=== PATIENT | male | born 1965 | race Caucasian/White ===

== ENCOUNTER 2023-09-20 05:11 | Observation (INO) ==
--- NOTE | 2023-08-15 11:08 | PAT Medication Instructions ---
Medication Instructions Date of Service August 15, 2023 Home Medications ascorbic acid (vitamin C) 500 mg tablet (Vitamin C) 1,000 mg PO DAILY atorvastatin 40 mg tablet 40 mg PO QAM carvedilol 3.125 mg tablet 3.125 mg PO BID celecoxib 200 mg capsule (Celebrex) 200 mg PO BID cholecalciferol (vitamin D3) 50 mcg (2,000 unit) capsule (Vitamin D3) 25 mcg PO DAILY clonazepam 0.5 mg tablet 0.5 mg PO BID docusate sodium 100 mg capsule (Stool Softener) 100 mg PO BID escitalopram oxalate 20 mg tablet 20 mg PO QAM furosemide 40 mg tablet 40 mg PO QAM magnesium oxide 400 mg PO BID potassium chloride 20 mEq oral packet 20 meq PO BID zinc acetate 50 mg (zinc) capsule 50 mg PO DAILY ASK your surgeon for instructions celecoxib 200 mg capsule (Celebrex) 200 mg PO BID DO NOT take the morning of surgery ascorbic acid (vitamin C) 500 mg tablet (Vitamin C) 1,000 mg PO DAILY cholecalciferol (vitamin D3) 50 mcg (2,000 unit) capsule (Vitamin D3) 25 mcg PO DAILY docusate sodium 100 mg capsule (Stool Softener) 100 mg PO BID furosemide 40 mg tablet 40 mg PO QAM magnesium oxide 400 mg PO BID potassium chloride 20 mEq oral packet 20 meq PO BID zinc acetate 50 mg (zinc) capsule 50 mg PO DAILY Take morning of surgery With a small sip of water, OTHERWISE NOTHING TO EAT OR DRINK AFTER MIDNIGHT: atorvastatin 40 mg tablet 40 mg PO QAM carvedilol 3.125 mg tablet 3.125 mg PO BID clonazepam 0.5 mg tablet 0.5 mg PO BID escitalopram oxalate 20 mg tablet 20 mg PO QAM Take evening before surgery carvedilol 3.125 mg tablet 3.125 mg PO BID clonazepam 0.5 mg tablet 0.5 mg PO BID docusate sodium 100 mg capsule (Stool Softener) 100 mg PO BID magnesium oxide 400 mg PO BID potassium chloride 20 mEq oral packet 20 meq PO BID Other Notes If you have any questions please call us at [phone] or [phone] or [phone] or [phone]
--- NOTE | 2023-08-21 09:26 | Anesthesiology Consultation ---
Date of Service August 21, 2023 Assessment & Plan (1) Encounter for pre-operative examination: - PAT testing to be faxed to PCP by patient request ([facility]). He reports upcoming PCP appointment 09/06/23. - Outpatient joint assessment: Patient is currently scheduled for inpatient pathway. If re-evaluated and patient/surgeon requests outpatient pathway, patient is not recommended candidate for outpatient joint program from anesthesia standpoint. Chart Review Chart Review: Pending: Refer to Additional Notes / Consult section and Patient seen in Pre Admission Testing Teaching & Discussion Pre-Anesthesia Teaching/Discussion Notes: Instructed NPO after midnight before surgery, except medications with 15 cc of water. Medication instructions provided according to the PAT guidelines. History Surgery Operation Date: 09/20/23 07:15 Proposed Procedures p Left Total Knee Arthroplasty - Abdirahman Shin DO Height/Weight Height: 5 ft 9 in Weight: 138.9 kg Allergies Allergy/AdvReac Type Severity Reaction Status Date / Time No Known Allergies Allergy Verified 08/03/23 14:24 Medications Home Medications Medication Instructions Recorded Confirmed Last Taken ascorbic acid (vitamin C) 500 mg 1,000 mg PO DAILY 08/03/23 08/03/23 Unknown tablet (Vitamin C) atorvastatin 40 mg tablet 40 mg PO QAM 08/03/23 08/03/23 Unknown carvedilol 3.125 mg tablet 3.125 mg PO BID 08/03/23 08/03/23 Unknown celecoxib 200 mg capsule (Celebrex) 200 mg PO BID 08/03/23 08/03/23 Unknown cholecalciferol (vitamin D3) 50 25 mcg PO DAILY 08/03/23 08/03/23 Unknown mcg (2,000 unit) capsule (Vitamin D3) clonazepam 0.5 mg tablet 0.5 mg PO BID 08/03/23 08/03/23 Unknown docusate sodium 100 mg capsule 100 mg PO BID 08/03/23 08/03/23 Unknown (Stool Softener) escitalopram oxalate 20 mg tablet 20 mg PO QAM 08/03/23 08/03/23 Unknown furosemide 40 mg tablet 40 mg PO QAM 08/03/23 08/03/23 Unknown magnesium oxide 400 mg PO BID 08/03/23 08/03/23 Unknown potassium chloride 20 mEq oral 20 meq PO BID 08/03/23 08/03/23 Unknown packet zinc acetate 50 mg (zinc) capsule 50 mg PO DAILY 08/03/23 08/03/23 Unknown Past Medical History Medical History Anemia Anxiety Colon cancer 2017 > surgery/chemo Edema Feet, occasional, chronic-notes gradual improvement Gallbladder problem unable to have surgery due to adhesions per pt report History of blood transfusion during colectomy Hyperlipidemia Hypertension controlled, stable per pt Neuropathy feet Rectal cancer 2017 > surgery/chemo Patient denies h/o stroke, seizures, heart attack, heart failure, DM, or blood clots/DVTs. Exercise / Class Metabolic Activity II 4-5 Yardwork/Stairs/Walk up hill (denies chest discomfort or shortness of breath with 1 FOS) Past Surgical History Surgical History History of anesthesia reaction "potassium and magnesium dropped" during colon surgery and had to stay overnight History of arthroscopy R/L knees History of cardiac cath Approximately 2013- no stents History of colonoscopy History of colostomy mesh inside stoma per pt History of esophagogastroduodenoscopy (EGD) Past Anesthesia History No Family Hx of Anesthesia Complications and Other (h/o hypokalemia and hypomagnesemia during colectomy) History of PONV No Hx of PONV and No Hx of Motion Sickness Social History Smoking Status: Never smoker Do You Dip or Chew Tobacco: Yes (advised npo) Hx Alcohol Use: No Hx Substance Use: No substance use type: other (medical marijuana-advised) Review of Systems Patient denies chest pain, shortness of breath, dyspnea on exertion, snoring, witnessed apneas, reflux, fever, chills, cough, wheezing, or palpitations. Physical Exam Vital Signs Vitals BP 118/79 P 75 TEMP 98.3 SP02 97% on RA RESP 18 Physical Patient resting comfortably in chair in no acute distress, alert and oriented, responding appropriately throughout visit Full cervical extension range of motion without pain TMD < 3 finger breadths Mallampati Score 3 Dentition: intact, denies chipped or loose teeth, caps/crowns, implants or bridges Lungs: normal respiratory effort. Good air movement, clear throughout to auscultation, no adventitious breath sounds Cardiac: regular rate and rhythm, no murmurs noted Carotid arteries: negative bruit bilat Lab Results Anesthesia Preop Results Results Anesthesia Widget: WBC 4.83 K/ul (4.8-10.8) 08/21/23 Hgb 12.0 g/dl (14.0-18.0) L 08/21/23 Hct 36.8 % (42.0-52.0) L 08/21/23 Plt 344 K/uL (130-400) 08/21/23 Na 138 mmol/L (136-145) 08/21/23 K 4.3 mmol/L (3.5-5.1) 08/21/23 Cl 105 mmol/L (98-107) 08/21/23 CO2 27 mmol/L (21-32) 08/21/23 BUN 19 mg/dl (6-23) 08/21/23 Creat 0.99 mg/dl (0.6-1.4) 08/21/23 Glucose Level 85 mg/dl (70-99(Fasting)) 08/21/23 PT 10.1 Seconds (9.0-12.0) 08/21/23 PTT 26 Seconds (21-31) 08/21/23 INR 0.9 (0.9-1.1) 08/21/23 HA1c 5.8 % (4.5-5.6) H 08/21/23 Urine Color Yellow 08/21/23 Urine Appearance Clear (Clear) 08/21/23 Urine pH 5.0 (4.5-7.5) 08/21/23 Urine Specific [place] 1.013 (1.000-1.030) 08/21/23 Urine Protein Negative (Negative) 08/21/23 Urine Glucose (UA) Negative (Negative) 08/21/23 Urine Ketones Negative (Negative) 08/21/23 Urine Blood Negative (Negative) 08/21/23 Urine Nitrite Negative (Negative) 08/21/23 Urine Bilirubin Negative (Negative) 08/21/23 Urine Urobilinogen Negative (Negative) 08/21/23 Urine Leukocyte Esterase Negative (Negative) 08/21/23 Blood Type O Positive 08/21/23 Antibody Screen NEGATIVE 08/21/23 Testing Electrocardiogram Date: 08/17/23 NSR, rate 68 bpm Incomplete RBBB Chest X-Ray Date: 08/21/23 No acute process.
--- NOTE | 2023-08-25 07:58 | History & Physical Report ---
Date of Service August 25, 2023 date of surgery: 09/20/23 Procedure: Left Total Knee Arthroplasty Surgeon: Abdirahman Shin, DO Assessment & Plan (1) Arthritis of knee, left: Plan: Further care discussed with patient and at this point in time has failed conservative measures and would like to proceed with a left total knee replacement. Plan on discharge will be home with home health physical therapy. DVT prophylaxiswith TEDs, SCDs and will also place on aspirin 81 mg p.o. b.i.d. for a month postop. Patient will have follow up appointment in our office two weeks post op for staple/suture removal and re-evaluation. Patient otherwise has no other questions or concerns. The risks and benefits have been discussed including, but not limited to, risk of infection, nerve injury, stiffness, loss of motion, failure to improve, etc. Reasonable outcomes and options of treatment were discussed. An explanation of appropriate alternatives to the procedure that may be advantageous were discussed and their risks and benefits, as well as the risks and benefits of not proceeding with treatment. I offered to answer any additional inquiries concerning the treatment involved. All the patient's questions were answered. The patient is agreeable, understanding of the treatment plan and alternatives, and wishes to proceed with the treatment plan. Please note the above document was generated using voice recognition software. It may contain grammatical, syntax or spelling errors. Any formal questions or concerns about the content, text or information contained within the body of this dictation should be directly addressed to the provider for clarification History of Present Illness Chief Complaint: left knee pain Primary Care Provider: NO PCP Smooth is a 58-year-old male who presented for preop evaluation prior to upcoming left total knee replacement. He has a longstanding history of left knee pain and has gradually worsened, rates his current pain as a 7 out of 10. He has had previous arthroscopy with partial meniscectomy and chondroplasty as well as undergone injections including corticosteroid with no improvement. He has tried and failed oral anti-inflammatories and Tylenol. At this point time is failed conservative measures and wished to proceed with a left total knee replacement Allergies Allergy/AdvReac Type Severity Reaction Status Date / Time No Known Allergies Allergy Verified 08/03/23 14:24 Home Medications Medication Instructions Recorded Confirmed Type ascorbic acid (vitamin C) 500 mg 1,000 mg PO DAILY 08/03/23 08/03/23 History tablet (Vitamin C) atorvastatin 40 mg tablet 40 mg PO QAM 08/03/23 08/03/23 History carvedilol 3.125 mg tablet 3.125 mg PO BID 08/03/23 08/03/23 History celecoxib 200 mg capsule (Celebrex) 200 mg PO BID 08/03/23 08/03/23 History cholecalciferol (vitamin D3) 50 25 mcg PO DAILY 08/03/23 08/03/23 History mcg (2,000 unit) capsule (Vitamin D3) clonazepam 0.5 mg tablet 0.5 mg PO BID 08/03/23 08/03/23 History docusate sodium 100 mg capsule 100 mg PO BID 08/03/23 08/03/23 History (Stool Softener) escitalopram oxalate 20 mg tablet 20 mg PO QAM 08/03/23 08/03/23 History furosemide 40 mg tablet 40 mg PO QAM 08/03/23 08/03/23 History magnesium oxide 400 mg PO BID 08/03/23 08/03/23 History potassium chloride 20 mEq oral 20 meq PO BID 08/03/23 08/03/23 History packet zinc acetate 50 mg (zinc) capsule 50 mg PO DAILY 08/03/23 08/03/23 History Past Med/Surg History Medical History History of blood transfusion during colectomy Gallbladder problem unable to have surgery due to adhesions per pt report Edema Feet, occasional, chronic-notes gradual improvement Anxiety Hyperlipidemia Hypertension controlled, stable per pt Anemia Colon cancer 2016 > surgery/chemo Rectal cancer 2017 > surgery/chemo Neuropathy feet Surgical History History of anesthesia reaction "potassium and magnesium dropped" during colon surgery and had to stay overnight History of arthroscopy R/L knees History of esophagogastroduodenoscopy (EGD) History of colonoscopy History of colostomy mesh inside stoma per pt History of cardiac cath Approximately 2013- no stents Social History Smoking Status: Never smoker Tobacco Type: Smokeless Tobacco (Dip or Chew) Second Hand Exposure: No; Do You Dip or Chew Tobacco: Yes (advised npo); Hx Alcohol Use: No Hx Substance Use: No Preferred Language: Tristanian Communication Ability: Effective Inspector Clip On Sunglasses Required: No Beliefs That Will Affect Care: None Current Living Situation: Spouse Feels Safe at Home: Yes Assistive Devices: None Review of Systems Review of Systems: All systems reviewed & are unremarkable except as noted in HPI & below Constitutional: no fever, no chills and no sweats Respiratory: no cough and no dyspnea Cardiovascular: no chest pain, no dyspnea and no orthopnea Gastrointestinal: no abdominal pain, no nausea and no vomiting Musculoskeletal: as per Subjective / HPI Physical Exam Physical Exam: HT: 5ft 9in WT: 138.9kg Constitutional: WD/WN, vitals as above no acute distress Respiratory: normal respiratory effort, lungs clear to auscultation no respiratory distress, no labored breathing and does not use accessory muscles Cardiovascular: RRR, no murmur, no edema Gastrointestinal (Abdomen): normal bowel sounds, soft, nontender, no hepatosplenomegaly Musculoskeletal: Knee: + knee abnormal to inspection (LEFT KNEE), + effusion (+1 effusion), + surgical incision (well healed portals), + limited ROM of knee (ROM 0/3/110), + knee ROM with crepitation, + joint line tenderness (medial joint line) and + Prosper's sign positive; no deformity, no skin erythema, no ecchymosis, no valgus laxity, no varus laxity, anterior drawer test negative, Petrona's sign negative and pivot shift test negative Results & Data Results & Data Diagnostic Findings Left Knee X-ray: left knee series confirm advanced degenerative changes to the left knee, greatest medial compartments and patellofemoral joint, showing joint space narrowing, osteophyte formation and subchondral sclerosis. no acute bony pathology noted.
[2023-09-20] MEDS ORDERED: ceFAZolin 2000MG 2,000 MG/15 ML SYR IV SCH (06:00)
[2023-09-20] MEDS: ACETAMINOPHEN 500 MG TAB PO SCH ×2 (06:12→14:36)
[2023-09-20] MEDS: CeleBREX 200 MG CAP PO SCH ×2 (06:13→11:53)
[2023-09-20] MEDS: FAMOTIDINE 20 MG TAB PO SCH (06:13)
[2023-09-20] MEDS: GABAPENTIN 300 MG CAP PO SCH (06:13)
[2023-09-20] MEDS: dexAMETHasone**PF** 10 MG/ML VIAL IV SCH (06:13)
[2023-09-20] MEDS: LR 500ML BOLUS, THEN 15ML/HR IV SCH (06:14)
[2023-09-20] MEDS: LR 60ML/HR IV SCH (06:14)
[2023-09-20] MEDS: METOCLOPRAMIDE HCL 10 MG TABLET PO SCH (06:14)
[2023-09-20] MEDS ORDERED: BUPIVACAINE 0.5 % 5 MG/1 ML PF 10ML VIAL ONE (06:16)
[2023-09-20] MEDS ORDERED: ROPIVACAINE 0.5% 5 MG/ML 30 ML VIAL ONE (06:16)
[2023-09-20] MEDS ORDERED: MIDAZOLAM HCL 1 MG/ML 2ML VIAL ONE ×2 (06:57)
[2023-09-20] MEDS ORDERED: PROPOFOL IV EMULSION 10 MG/ML 20 ML VIAL IV ONE ×3 (07:00→08:17)
[2023-09-20] MEDS ORDERED: LIDOCAINE 2% 2 ML VIAL/AMP(20MG/ML) INFIL ONE (07:00)
[2023-09-20] MEDS: TRANEXAMIC ACID 1,000 MG **IV Pre-op IV SCH (07:03)
--- NOTE | 2023-09-20 07:04 | History & Physical Bridge Note ---
Date of Service September 20, 2023 History & Physical Bridge Note I have examined the patient, reviewed the History & Physical and in the interval since the performance of the History & Physical I have noted the following changes of clinical significance: no changes noted
[2023-09-20] MEDS: ceFAZolin 3000MG 3,000 MG/72.5 ML BAG IV SCH (07:30)
[2023-09-20] MEDS: ROPIV 0.5% 246mg, Ketorolac 30mg, EPINEPHrine 0.5mg in NSS INFIL SCH (08:02)
--- NOTE | 2023-09-20 08:27 | Operative Report ---
Post Operative Report Pre & Post Diagnosis Operation Date: 09/20/23 07:15 Pre-Op Diagnosis: Left Knee Osteoarthritis Post-Op Diagnosis: Left Knee Osteoarthritis I identified the patient and participated in the time-out.: Yes Procedure Operation Date: 09/20/23 07:15 Actual Procedures p Left Total Knee Arthroplasty(Left) Utilizing [employer] journey 2 patient- matched total knee arthroplasty size femur 7 tibia 7 poly 9 patella 32 pamela- Abdirahman Shin DO Surgeon Abdirahman Shin DO [facility]ri Special Procedures Technologist Federico BADILLO Estimated Blood Loss 5 Findings Consistent with Post-Op Diagnosis Patient presents with severe end-stage tricompartmental degenerative joint disease left knee varus [id number] eburnated [id number] with marginal osteophytes subchondral sclerosis and large to moderate effusion Specimens Bone and cartilage Drains Medium bore Hemovac Anesthesia Type MAC Spinal Regional Complications none Disposition Accompanied Patient To Recovery: No Disposition: Recovery Room Indications Patient presents with severe end-stage DJD left knee nonresponse to conservative management above intraoperative findings known for type surgery with severe eburnated bone patient failed attempted corticosteroid injection viscosupplementation relative rest activity modification the above intraoperative findings were noted Description of Procedure After proper prepping and draping of the left lower extremity anterior midline incision was made over the region of the extensor extensor mechanism after meticulous hemostasis was obtained and maintained in subcutaneous tissues a medial parapatellar incision was made The patella was subluxed lateralward the medial lateral gutter were cleaned from any hypertrophic synovitis and scar tissue of the distal femoral block was placed and the distal femoral osteotomy cut was made subsequently the chamfers anterior and posterior osteotomy cuts were made utilizing the 4-in-1 block the tibia was subsequently subluxed anteriorward medial and ateral meniscal remnants were excised in their entirety remnants of the anterior and posterior cruciate ligaments were excised in their entirety excellent exposure of the proximal tibia was obtained the tibial osteotomy guide was placed on the proximal tibial osteotomy cut was made once again the knee was irrigated with copious amounts of sterile saline solution the patella was subsequently everted lateralward thickened scar tissue around the patella was removed the patella was subsequently cut utilizing a freehand technique and was drilled prepared for final preparation and placement of patella socially flexion-extension gaps were checked and the equal and symmetric trials were placed to the appropriate femoral and tibial trials with poly-spacer being placed for equal flexion and extension gaps and full range of motion including extension to 0 and flexion to 140 the trial components after having been taken to recovery range of motion was subsequently removed meticulous hemostasis was obtained and maintained subsequently a knee block injection of joint cocktail including ropivacaine 0.5% 150 mg. Bupivacaine 0.5% epinephrine 1-200,030 mL's toradol 30 mg dexamethasone 4 mg ketamine 10 mg clonidine 100 micrograms normal saline solution 30 mg was infiltrated into the soft tissues of the posterior knee medial lateral gutters and periosteal synovium special attention was paid to protect neurovascular structures at all times subsequently trial components having been removed the knee was irrigated with sterile saline solution. debris was removed the proximal tibia was subsequently prepared and was made ready for the placement of the tibial component tibial component was also cemented and tamped into position the femoral component was subsequently placed and cemented in the position the patellar component was subsequently cemented in position because hemostasis once again obtained and maintained wound having been thoroughly irrigated with debridement and debridement lavage was performed as well as a medial parapatellar incision closed with #1 Vicryl in interrupted fashion subcutaneous was closed with #2 Vicryl skin was closed with skin clips. PA-C was necessary for prepping and drapping as well as wound closure of deep fascia Sub cutaneous tissue and skin and was necessary for the case. A sterile compressive dressing was placed patient was taken to recovery in stable condition of report dictated by Kip I attest to the content of the Intraoperative Record and any orders documented therein. Any exceptions are noted below.Due to the complex nature of the procedure, the entire surgery was performed with the operational assistance ofABY Yan. The baking assistant, under direct supervision, was involved in the actual performance of all aspects of the surgical procedure including hemostasis, tissue retraction and incision, instrument management, patient positioning, and wound closure. I attest to the content of the Intraoperative Record and any orders documented therein. Any exceptions are noted below.
[2023-09-20] MEDS ORDERED: HYDROmorphone INJ 2 MG/ML SYR/VIAL IV PRN (09:12)
[2023-09-20] MEDS ORDERED: ATROPINE SULFATE 0.1 MG/ML 10ML SYR IV PRN (09:12)
[2023-09-20] MEDS ORDERED: ePHEDrine sulfate 50 MG/ML AMP IV PRN (09:12)
[2023-09-20] MEDS ORDERED: fentaNYL citrate PF 100 MCG/2 ML VIAL IV PRN (09:12)
--- NOTE | 2023-09-20 09:58 | XRay Report ---
XR knee LT 1 or 2V routine HISTORY: 58 years-old Male Surgical Post Op left knee arthroplasty COMPARISON: None TECHNIQUE: 2 views of the left knee FINDINGS: Total joint arthroplasty with patellar resurfacing. Expected postoperative soft tissue swelling, deep tissue air and small joint effusion. No acute fracture, dislocation or unexpected opaque foreign bod y. IMPRESSION: Total joint arthroplasty and patellar resurfacing with expected postoperative changes. ACT 112: Negative or not required by law. The above report was generated using voice recognition software. It may contain grammatical, syntax o r spelling errors. Electronically signed by: Kevon Humphrey M.D. 09/20/2023 9:57 AM
--- NOTE | 2023-09-20 10:31 | Anesthesiology Progress Note ---
Date of Service September 20, 2023 Anesthesia Post Procedure Vital Signs Vital Signs: Temp Pulse Resp BP Pulse Ox O2 Del Method O2 Flow Rate 09/20/23 09:55 61 14 128/96 98 Room Air 09/20/23 09:45 36.5 C 60 12 129/68 99 Room Air 09/20/23 09:35 62 18 125/80 99 Room Air 09/20/23 09:25 65 14 120/66 99 Room Air 09/20/23 09:15 61 16 120/76 99 Oxymask 4 09/20/23 09:05 63 14 123/85 100 Oxymask 4 09/20/23 08:57 36.2 C L 71 16 136/79 98 Oxymask 6 09/20/23 05:47 37.0 C 67 20 160/99 H 98 Room Air Transfer of Care Handoff Completed per policy Notes Mental Status: alert / awake / arousable and participated in evaluation Nausea / Vomiting: adequately controlled Pain: adequately controlled Airway Patency, RR, SpO2: stable & adequate BP & HR: stable & adequate Hydration State: stable & adequate Neuraxial Anesthesia: was administered and sensory block is resolving Anesthetic Complications: no major complications apparent and Pt Satisfied with anesthetic care
[2023-09-20] MEDS ORDERED: bisacodyL 10 MG SUPP PR PRN (10:45)
[2023-09-20] MEDS ORDERED: MAGNESIUM HYDROXIDE SUSP 30 ML UDC PO PRN (10:45)
[2023-09-20] MEDS ORDERED: DOCUSATE SODIUM 100 MG CAP PO SCH (10:45)
[2023-09-20] MEDS ORDERED: METOCLOPRAMIDE HCL INJ 5 MG/ML 2 ML VIAL IV PRN (10:45)
[2023-09-20] MEDS ORDERED: NALOXONE HCL 0.4 MG/1 ML VIAL/CARP IV PRN (10:45)
[2023-09-20] MEDS ORDERED: ONDANSETRON INJ 2 MG/ML 2 ML VIAL IV PRN (10:45)
[2023-09-20] MEDS ORDERED: diphenhydrAMINE Capsule 25 MG CAP PO PRN (10:45)
[2023-09-20] MEDS: TRANEXAMIC ACID 1,000 MG **IV Intra-op IV SCH (11:17)
[2023-09-20] MEDS: ORTHO JOINT ANESTHETIC ONE (11:20)
[2023-09-20] MEDS: ASPIRIN 81 MG ECTAB PO SCH (11:52)
[2023-09-20] MEDS: ASCORBIC ACID 500 MG TAB PO SCH (11:52)
[2023-09-20] MEDS: DOCUSATE SODIUM 100 MG CAP PO SCH (11:52)
[2023-09-20] MEDS: ESCITALOPRAM OXALATE 20 MG TAB PO SCH (11:54)
[2023-09-20] MEDS: clonazePAM 0.5 MG TAB PO SCH (11:54)
[2023-09-20] MEDS: carvediloL 3.125 MG TAB PO SCH (11:55)
[2023-09-20] MEDS: ATORVASTATIN 40 MG TAB PO SCH (11:55)
[2023-09-20] MEDS: POTASSIUM CHLORIDE PWD 20 MEQ PACK PO SCH (11:55)
[2023-09-20] MEDS: MULTIVITAMIN TAB PO SCH (11:56)
[2023-09-20] MEDS: MAGNESIUM OXIDE 400 MG TAB PO SCH (11:56)
[2023-09-20] MEDS: CHOLECALCIFEROL 25 MCG (1000 UNITS) TAB PO SCH (11:57)
[2023-09-20] MEDS: ZINC SULFATE 220 MG CAPSULE PO SCH (11:58)
[2023-09-20] MEDS: KETOROLAC TROMETHAMINE 15 MG/ML VIAL IV SCH (11:58)
[2023-09-20] MEDS: ceFAZolin 2000MG 2,000 MG/15 ML SYR IV SCH (15:06)
[2023-09-20] MEDS: SODIUM CHLORIDE 0.9% 1,000 ML IV SCH (15:06)
[2023-09-20] MEDS: SENNA 8.6 MG TAB PO SCH (20:52)
[2023-09-20] MEDS: oxyCODONE HCL IR 5 MG TAB (IMMEDIATE RELEASE) PO PRN (20:53)
[2023-09-21 06:19] LABS: Hematocrit (blood only) 30.7 % (42.0-52.0); Hemoglobin 10.3 g/dl (14.0-18.0); Mean Corpuscular Hemoglobin 30.8 pg (25.0-34.0); Mean Corpuscular Hgb Conc 33.6 g/dL (32.0-36.0); Mean Corpuscular Volume 91.9 fL (80.0-100.0); Mean Platelet Volume 9.7 fL (9.4-12.4); Platelet Count 311 K/uL (130-400); RDW Coefficient of Variation 13.2 % (11.5-14.5); RDW Standard Deviation 44.3 fL (36.4-46.3); Red Blood Count 3.34 M/uL (4.70-6.10); White Blood Count 11.75 K/ul (4.8-10.8)
[2023-09-21 06:34] LABS: BUN Creatinine Ratio 24.7 (10-20); Calcium 8.9 mg/dl (8.6-10.3); Creatinine Clr Calc Pharmacy 118.7 ml/min; Est GFR (African American) 103.1 ml/min; Est GFR (Non-African American) 88.9 ml/min; Potassium 4.3 mmol/L (3.5-5.1)
--- NOTE | 2023-09-21 06:53 | Orthopedic Progress Note ---
Date of Service September 21, 2023 Assessment & Plan (1) History of total left knee replacement: Plan: POD #1 s/p Left TKA pt/ot dvt proph with JOHN/SCD/ASA plan for d/c home with HHPT when stable Admission and Anticipated Discharge Date Admission Date: September 20, 2023 Subjective POD #1 s/p Left TKA Review of Systems Constitutional: no fever, no chills and no sweats Respiratory: no cough and no dyspnea Cardiovascular: no chest pain and no dyspnea Gastrointestinal: no abdominal pain, no nausea and no vomiting Physical Exam Physical Exam: Vital Signs Temp Pulse Pulse Resp BP BP Pulse Ox 09/21/23 03:00 36.5 C 69 18 125/71 97 09/20/23 22:54 36.7 C 78 18 154/65 H 95 09/20/23 20:00 09/20/23 19:35 36.8 C 84 18 149/92 H 93 09/20/23 13:40 36.7 C 82 20 131/78 98 09/20/23 12:10 36.7 C 79 17 150/82 H 97 09/20/23 11:11 36.7 C 67 17 145/96 H 97 09/20/23 10:49 36.4 C L 64 20 138/89 98 09/20/23 10:40 09/20/23 10:10 36.6 C 64 18 136/88 98 09/20/23 09:55 61 14 128/96 98 09/20/23 09:45 36.5 C 60 12 129/68 99 09/20/23 09:35 62 18 125/80 99 09/20/23 09:25 65 14 120/66 99 09/20/23 09:15 61 16 120/76 99 09/20/23 09:05 63 14 123/85 100 09/20/23 08:57 36.2 C L 71 16 136/79 98 O2 Del Method O2 Flow Rate 09/21/23 03:00 Room Air 09/20/23 22:54 Room Air 09/20/23 20:00 Room Air 09/20/23 19:35 Room Air 09/20/23 13:40 Room Air 09/20/23 12:10 Room Air 09/20/23 11:11 Room Air 09/20/23 10:49 Room Air 09/20/23 10:40 Room Air 09/20/23 10:10 Room Air 09/20/23 09:55 Room Air 09/20/23 09:45 Room Air 09/20/23 09:35 Room Air 09/20/23 09:25 Room Air 09/20/23 09:15 Oxymask 4 09/20/23 09:05 Oxymask 4 09/20/23 08:57 Oxymask 6 Intake and Output 09/20/23 09/20/23 09/21/23 14:59 22:59 06:59 Intake Total 2222.5 / 3772.5 550 / 3772.5 1000 / 3772.5 Output Total 505 / 1755 1100 / 1755 150 / 1755 Balance 1717.5 / 2017.5 -550 / 2017.5 850 / 2017.5 Intake: IV 172.5 / 1172.5 1000 / 1172.5 Lactated Ringe r's 1,000 ml @ 15 0 / 0 mls/hr IV .Q24 H [facility] Rx#: [id number] Sodium Chlorid e 0.9% 1,000 ml @ 1000 / 1000 100 mls/hr IV .Q10H [facility] Rx#: [id number] Tranexamic Aci d / 0.7% NaCl 1, 100 / 100 000 mg In 100 ml @ 600 mls/hr IV TODAY@0600 [facility] Rx#:[id number] ceFAZolin 3000 MG 3,000 mg In 72 72.5 / 72.5 .5 ml @ 130 ml s/hr IV PREOP [facility] Rx#:[id number] IV Perioperative 1500 / 1500 Oral 550 / 1100 550 / 1100 Output: Urine 425 / 1375 950 / 1375 Estimated Blood Loss 5 / 5 Drain Output 75 / 375 150 / 375 150 / 375 Left Knee Hemo vac 75 / 375 150 / 375 150 / 375 Other: # Unmeasured Voi ds 1 250 Musculoskeletal: Left Leg: NVDI, calf SNT, negative hemal sign. DP palpable, able to wiggle toes/ankle movement without difficulty. dressing clean dry and intact. Results & Data Vital Signs (Past 12 Hours) Vital Signs Temp Pulse Resp BP Pulse Ox O2 Del Method 09/21/23 03:00 36.5 C 69 18 125/71 97 Room Air 09/20/23 22:54 36.7 C 78 18 154/65 H 95 Room Air 09/20/23 20:00 Room Air 09/20/23 19:35 36.8 C 84 18 149/92 H 93 Room Air Laboratory Results Laboratory Results WBC 11.75 K/ul (4.8-10.8) H 09/21/23 05:47 RBC 3.34 M/uL (4.70-6.10) L 09/21/23 05:47 Hgb 10.3 g/dl (14.0-18.0) L 09/21/23 05:47 Hct 30.7 % (42.0-52.0) L 09/21/23 05:47 MCV 91.9 fL (80.0-100.0) 09/21/23 05:47 MCH 30.8 pg (25.0-34.0) 09/21/23 05:47 MCHC 33.6 g/dL (32.0-36.0) 09/21/23 05:47 RDW Std Deviation 44.3 fL (36.4-46.3) 09/21/23 05:47 RDW Coeff of Adam 13.2 % (11.5-14.5) 09/21/23 05:47 Plt Count 311 K/uL (130-400) 09/21/23 05:47 MPV 9.7 fL (9.4-12.4) 09/21/23 05:47 Sodium 136 mmol/L (136-145) 09/21/23 05:47 Potassium 4.3 mmol/L (3.5-5.1) 09/21/23 05:47 Chloride 101 mmol/L (98-107) 09/21/23 05:47 Carbon Dioxide 29 mmol/L (21-32) 09/21/23 05:47 Anion Gap 6 (3-11) 09/21/23 05:47 BUN 23 mg/dl (6-23) 09/21/23 05:47 Creatinine 0.93 mg/dl (0.6-1.4) 09/21/23 05:47 Est Cr Clr Drug Dosing 118.7 ml/min 09/21/23 05:47 Est GFR ( Amer) 103.1 ml/min 09/21/23 05:47 Est GFR (Non-Af Amer) 88.9 ml/min 09/21/23 05:47 BUN/Creatinine Ratio 24.7 (10-20) H 09/21/23 05:47 Glucose 100 mg/dl (70-99(Fasting)) H 09/21/23 05:47 Calcium 8.9 mg/dl (8.6-10.3) 09/21/23 05:47 Impressions Knee X-Ray 09/20/23 08:59 XR knee LT 1 or 2V routine HISTORY: 58 years-old Male Surgical Post Op left knee arthroplasty COMPARISON: None TECHNIQUE: 2 views of the left knee FINDINGS: Total joint arthroplasty with patellar resurfacing. Expected postoperative soft tissue swelling, deep tissue air and small joint effusion. No acute fracture, dislocation or unexpected opaque foreign body. IMPRESSION: Total joint arthroplasty and patellar resurfacing with expected postoperative changes. ACT 112: Negative or not required by law. The above report was generated using voice recognition software. It may contain grammatical, syntax or spelling errors. Electronically signed by: Kevon Humphrey M.D. 09/20/2023 9:57 AM
[2023-09-21] MEDS: HYDROmorphone INJ 1 MG/ML SYRINGE IV PRN (07:49)
[2023-09-21] MEDS: FUROSEMIDE 40 MG TAB PO SCH (07:54)
--- NOTE | 2023-09-22 07:42 | Discharge Summary ---
Date of Service date of admission: September 20, 2023 date of discharge: 09/21/23 Admission HPI Per Admitting Provider Smooth is a 58-year-old male who presented for preop evaluation prior to upcoming left total knee replacement. He has a longstanding history of left knee pain and has gradually worsened, rates his current pain as a 7 out of 10. He has had previous arthroscopy with partial meniscectomy and chondroplasty as well as undergone injections including corticosteroid with no improvement. He has tried and failed oral anti-inflammatories and Tylenol. At this point time is failed conservative measures and wished to proceed with a left total knee replacement Principal Diagnosis left total knee replacement Discharge Exam Vital Signs Temp Pulse Pulse Resp BP BP Pulse Ox 09/21/23 03:00 36.5 C 69 18 125/71 97 09/20/23 22:54 36.7 C 78 18 154/65 H 95 09/20/23 20:00 09/20/23 19:35 36.8 C 84 18 149/92 H 93 09/20/23 13:40 36.7 C 82 20 131/78 98 09/20/23 12:10 36.7 C 79 17 150/82 H 97 09/20/23 11:11 36.7 C 67 17 145/96 H 97 09/20/23 10:49 36.4 C L 64 20 138/89 98 09/20/23 10:40 09/20/23 10:10 36.6 C 64 18 136/88 98 09/20/23 09:55 61 14 128/96 98 09/20/23 09:45 36.5 C 60 12 129/68 99 09/20/23 09:35 62 18 125/80 99 09/20/23 09:25 65 14 120/66 99 09/20/23 09:15 61 16 120/76 99 09/20/23 09:05 63 14 123/85 100 09/20/23 08:57 36.2 C L 71 16 136/79 98 O2 Del Method O2 Flow Rate 09/21/23 03:00 Room Air 09/20/23 22:54 Room Air 09/20/23 20:00 Room Air 09/20/23 19:35 Room Air 09/20/23 13:40 Room Air 09/20/23 12:10 Room Air 09/20/23 11:11 Room Air 09/20/23 10:49 Room Air 09/20/23 10:40 Room Air 09/20/23 10:10 Room Air 09/20/23 09:55 Room Air 09/20/23 09:45 Room Air 09/20/23 09:35 Room Air 09/20/23 09:25 Room Air 09/20/23 09:15 Oxymask 4 09/20/23 09:05 Oxymask 4 09/20/23 08:57 Oxymask 6 Intake and Output 09/20/23 09/20/23 09/21/23 14:59 22:59 06:59 Intake Total 2222.5 / 3772.5 550 / 3772.5 1000 / 3772.5 Output Total 505 / 1755 1100 / 1755 150 / 1755 Balance 1717.5 / 2017.5 -550 / 2017.5 850 / 2017.5 Intake: IV 172.5 / 1172.5 1000 / 1172.5 Lactated Ringer's 1,000 ml @ 15 0 / 0 mls/hr IV .Q24H [facility] Rx#: [id number] Sodium Chloride 0.9% 1,000 ml @ 1000 / 1000 100 mls/hr IV .Q10H [facility] Rx#: [id number] Tranexamic Acid / 0.7% NaCl 1, 100 / 100 000 mg In 100 ml @ 600 mls/hr IV TODAY@0600 [facility] Rx#:[id number] ceFAZolin 3000MG 3,000 mg In 72 72.5 / 72.5 .5 ml @ 130 mls/hr IV PREOP [facility] Rx#:[id number] IV Perioperative 1500 / 1500 Oral 550 / 1100 550 / 1100 Output: Urine 425 / 1375 950 / 1375 Estimated Blood Loss 5 / 5 Drain Output 75 / 375 150 / 375 150 / 375 Left Knee Hemovac 75 / 375 150 / 375 150 / 375 Other: # Unmeasured Voids 1 250 Constitutional WD/WN, vitals as above no acute distress Respiratory normal respiratory effort, lungs clear to auscultation no respiratory distress, no labored breathing and does not use accessory muscles Cardiovascular RRR, no murmur, no edema Gastrointestinal (Abdomen) normal bowel sounds, soft, nontender, no hepatosplenomegaly Musculoskeletal Knee: + knee abnormal to inspection (LEFT KNEE), + effusion (+1 effusion), + surgical incision (well healed portals), + limited ROM of knee (ROM 0/3/110), + knee ROM with crepitation, + joint line tenderness (medial joint line) and + Prosper's sign positive; no deformity, no skin erythema, no ecchymosis, no valgus laxity, no varus laxity, anterior drawer test negative, Petrona's sign negative and pivot shift test negative Discharge Data Allergies Allergy/AdvReac Type Severity Reaction Status Date / Time No Known Allergies Allergy Verified 09/20/23 05:40 Procedures Performed Operation Date: 09/20/23 07:15 Actual Procedures p Left Total Knee Arthroplasty(Left) - Abdirahman Batista DO Ordered Studies 09/20/23 05:00 US - OR guided needle placemen Routine Hospital Course (1) History of total left knee replacement: POD #1 s/p Left TKA pt/ot dvt proph with JOHN/SCD/ASA plan for d/c home with HHPT when stable Total Time Total Time Spent Total Time Spent (In Minutes): 20 Discharge Plan Discharge Items Patient Disposition: Home - Home Health Services Reason For Visit: Left Knee Osteoarthritis Discharge Diagnosis: LEFT TOTAL KNEE REPLACEMENT Activity: Per Instructions section Weightbearing Comment: WBAT WITH WALKER Non-emergency contact: Surgeon Call non-emergency contact if: you have any medication questions, your temperature is above 101, your wound has increased redness, your wound has increased drainage and your wound pain has increased Follow-up/Referrals: Sheeba Saldaña CRNP [Primary Care Provider] - Diet: Regular Addtl Attending Provider Instructions: ACTIVITY RECOMMENDATIONS: SELF CARE INSTRUCTIONS AFTER TOTAL KNEE REPLACEMENT A. You may need to continue a physical therapy program after discharge from the hospital. There are several options available to you. Your doctor will assist you in selecting the best one for you. 1. An out-patient facility 2 to 3 times a week for therapy or home therapy. 2. Continue working on all exercises taught to you in the hospital. Your goals should be to increase bending of your knee to 90 degrees and beyond and to fully straighten your knee. B. You may progress at your own pace from walking with a walker or crutches to a cane; then to no assistive devices. C. Make walking a part of your daily routine. Be up as much as comfortable with rest periods throughout the day. Rest with leg elevation is very important. Use the ice wrap frequently for the first 3-4 weeks. D. There are no restrictions on activities. You may ride in a car, shop, participate in township clerk and all social activities. E. Wear the long elastic stockings (JOHN hose) 20 hours a day for 2 weeks after surgery. They can be removed several times a day for laundering and for a bath. F. You may shower, no tub baths until cleared by your doctor. SPECIAL CARE INSTRUCTIONS: VERY IMPORTANT TO READ AND REVIEW A. There are a few signs you need to watch for after you are home. Call [facility] if you notice any of the followin. Increased severe knee pain. Some pain is expected especially when you exercise. 2. Increased swelling in your leg or knee; pain or swelling of the calf muscle in either lower leg. 3. Any fluid drainage from the incision. 4. Shortness of breath or chest pain. B. Please call [facility] at if you have any concerns or questions about your operation or recovery. The doctor or his nurse will return your call promptly. C. You must take antibiotics before dental work, bladder, bowel or other surgery. Your doctor will provide you with a permanent care to carry describing this precaution. IMPORTANT: * REMEMBER TO TAKE ASPIRIN, 81 MG, TWICE DAILY FOR 4 WEEKS UNLESS OTHERWISE DIRECTED. THIS IS YOUR BLOOD THINNER. * HIGH RISK PATIENTS MAY BE PRESCRIBED A STRONGER BLOOD THINNER. THIS WILL BE PROVIDED AT DISCHARGE. * CALL IF INCREASED PAIN, REDNESS, DRAINAGE OR FEVER GREATER THAT 101. * WEAR JOHN HOSE 20 HOURS PER DAY FOR 2 WEEKS. DRESSING INSTRUCTIONS * BRANDON Dressing- This is a large suction dressing covering your incision. This will help pull any excess drainage from the wound and allow your incision to heal properly. You may shower with this if you can keep the unit outside of the shower. If any bleeding or leakage is noted please call your doctor's office. This will remain on your incision for 7 days and then should be removed. This can be done yourself or by the home nursing staff if applicable. The entire unit is disposable once removed. Once removed, keep incision clean and dry. If redness or drainage is noted, please call your surgeon. ONCE BRANDON IS REMOVED, FOLLOW THESE INSTRUCTIONS: DERMABOND Prineo- This is a mesh tape dressing that is covered with glue. It should remain in place until the incision is properly healed, usually 10-14 days. This dressing is designed to naturally slough off. You may trim the excess mesh tape as it peels off. Incision may be briefly wet in a shower. Dry immediately by blotting with a clean, dry towel. Do not bath or swim until instructed by your doctor. Do not scratch, rub, or pick at the dressing. Do not apply any topical ointments or lotions until dressing is completely removed and/or instructed by your doctor. There may be a small piece of suture material at one end of your incision. Do not pull or trim this. If it is bothersome or catching on clothing, you may cover it with a band-aid. IF INCISION IS LEAKING THROUGH DRESSING, CALL THE OFFICE . FOLLOW UP VISIT: If appointment is not already scheduled: Please call [facility] [place] to make a follow-up appointment for 2 weeks after your surgery at . Pending Studies at Discharge: No Stand-Alone Forms: My [facility] Medications and DC Order Prescriptions: New aspirin 81 mg tablet,delayed release (DR/EC) 81 mg PO BID 30 Days Qty: 60 0RF acetaminophen 500 mg tablet 1,000 mg PO Q8 21 Days Qty: 126 0RF cefadroxil 500 mg capsule 500 mg PO BID 14 Days Qty: 28 0RF docusate sodium 100 mg Capsule 100 mg PO BID Qty: 20 0RF oxycodone 5 mg tablet 5 - 10 mg PO Q6H PRN (Reason: pain) Qty: 30 0RF Rx Instructions: ongoing therapy, supervising dr jania batista. max 6 tabs in 24 hours. date of surgery 09/20/23 Continued atorvastatin 40 mg Tablet 40 mg PO QAM celecoxib [Celebrex] 200 mg Capsule 200 mg PO BID clonazepam 0.5 mg Tablet 0.5 mg PO BID carvedilol 3.125 mg Tablet 3.125 mg PO BID Rx Instructions: must administer with a meal/food escitalopram oxalate 20 mg Tablet 20 mg PO QAM furosemide 40 mg Tablet 40 mg PO QAM zinc acetate 50 mg (zinc) Capsule 50 mg PO DAILY potassium chloride 20 mEq Packet 20 meq PO BID ascorbic acid (vitamin C) [Vitamin C] 500 mg Tablet 1,000 mg PO DAILY docusate sodium [Stool Softener] 100 mg Capsule 100 mg PO BID cholecalciferol (vitamin D3) [Vitamin D3] 50 mcg (2,000 unit) Capsule 25 mcg PO DAILY magnesium oxide 400 mg magnesium Tablet 400 mg PO BID Krames/Other Patient Handouts: DVT Post Op Prevention, Tips After Knee Surgery, Knee Replacement Total Dc Admission Data Admit Date/Time: 09/20/23 08:59 Attending Provider: Abdirahman Batista Admit Provider: Abdirahman Batista Primary Care Provider: Sheeba Saldaña Other Interventions: Discharge Summary Assessment (RN) Last Done: 09/21/23 10:11
== END 2023-09-21 11:12 | disposition home health service (06) ==
LOC: 3E 05:11 → ASU 05:11